=== PATIENT | female | born 1945 | race Caucasian/White ===

== ENCOUNTER → 2016-11-11 | Outpatient (CLI) | payer OTHER ==
--- NOTE | 2016-11-11 09:15 | KCIC ---
INDICATION: Short of air, COPD. TECHNIQUE: Two-view chest radiograph was obtained. Comparison is from February 20, 2016. FINDINGS: The lungs are clear. There is no pleural effusion. The heart is not enlarged and there is no heart failure. There are clips in the upper abdomen. There are minimal degenerative changes in the spine. IMPRESSION: No acute thoracic findings. Electronically signed by: Willian Oliveira MD (11/11/2016 9:12 AM) [id number]
== END | disposition home or self-care (01) ==
LOC: KCIC 08:41
PROVIDERS: ATTEND Internal Medicine Pulmonary Disease
DX: J44.9 Chronic obstructive pulmonary disease, unspecified (principal); Z87.891 Personal history of nicotine dependence
CPT/HCPCS: 71020

== ENCOUNTER → 2016-11-24 | Outpatient (CLI) | payer OTHER ==
--- NOTE | 2016-11-24 10:51 | KCIC ---
PQRS Compliance Statement: One or more of the following individualized dose reduction techniques were utilized for this examination: 1. Automated exposure control 2. Adjustment of the mA and/or kV according to patient size 3. Use of iterative reconstruction technique CT CHEST WO CONTRAST Clinical Indication: Shortness of air, chest pain, cough. Smoker x50 years. Comparison: None. TECHNIQUE: Helical CT imaging of the chest is performed without IV contrast. Findings: There is an 11 mm posterior right thyroid lobe nodule. There is a 9 mm left thyroid nodule. There is no adenopathy in the chest. Limited evaluation of the bety without IV contrast. There is ectasia of the ascending thoracic aorta. Three-vessel coronary artery disease. Cardiac size normal, no pericardial effusion. Mild dependent retained secretions or mucous in the trachea. There is minimal upper lobe centrilobular emphysema. There are bulla in the posterior right upper lobe adjacent to the mediastinum. Calcified granuloma right middle lobe. 3 mm groundglass nodule posterior right lower lobe, image 35. No further follow-up is required per Fleischner Society criteria. Cholecystectomy. Small hypodensity in segment 3 of the liver may be a cyst or hemangioma. There are 2 probable cysts in the upper pole the left kidney. There is a cortical hyperdensity in the upper pole the left kidney measuring 7 mm, coronal image 31. There is an exophytic lesion of the interpolar left kidney measuring 2.8 cm, attenuation measures 28 Hounsfield units, therefore not a simple cyst. Solid mass cannot be excluded. Degenerative spondylosis of the thoracic spine. No compression fracture is seen. IMPRESSION: 1. Minimal upper lobe centrilobular emphysema. 2. There is a soft tissue density lesion of the left kidney. Recommend outpatient renal ultrasound. 3. There are right and left thyroid nodules. Consider outpatient thyroid ultrasound. Electronically signed by: Toby Balderrama MD (11/24/2016 10:47 AM) [id number]
== END | disposition home or self-care (01) ==
LOC: KCIC CT 08:40
PROVIDERS: ATTEND Internal Medicine Pulmonary Disease
DX: J44.9 Chronic obstructive pulmonary disease, unspecified (principal); E04.2 Nontoxic multinodular goiter; N28.9 Disorder of kidney and ureter, unspecified; M47.894 Other spondylosis, thoracic region
CPT/HCPCS: 71250

== ENCOUNTER → 2016-11-24 | Outpatient (CLI) | payer OTHER ==
--- NOTE | 2016-11-24 13:21 | KCIC ---
DATE: 11/24/2016 EXAM: MAMMO BHAVANA SCREENING BILATERAL HISTORY: Routine screening. History of right breast biopsy with benign pathology in 1996. COMPARISON: None This study was interpreted with the benefit of Computerized Aided Detection (CAD). FINDINGS: Breast Density: SCATTERED The breast parenchyma shows scattered fibroglandular densities. Breast parenchyma level B. The nipples are within normal limits. There is dimpling of the skin noted within upper outer right breast. No suspicious calcifications, spiculated masses or areas of architectural distortion. IMPRESSION: No mammographic evidence of malignancy. Right upper outer breast skin dimpling likely due to prior biopsy. Clinically correlate. BI-RADS CATEGORY: 2 BENIGN FINDING(S) RECOMMENDED FOLLOW-UP: 12M 12 MONTH FOLLOW-UP PQRS compliance statement: Patient information was entered into a reminder system with a target due date 11/24/2017 for the next mammogram. Mammography is a sensitive method for finding small breast cancers, but it does not detect them all and is not a substitute for careful clinical examination. A negative mammogram does not negate a clinically suspicious finding and should not result in delay in biopsying a clinically suspicious abnormality. "Our facility is accredited by the [employer] Mammography [employer]."
== END | disposition home or self-care (01) ==
LOC: KCIC MAMMO 08:48
PROVIDERS: ATTEND Physician Assistant Surgical
DX: Z12.31 Encounter for screening mammogram for malignant neoplasm of breast (principal)
CPT/HCPCS: 77063; G0202; 77067

== ENCOUNTER → 2017-01-07 | Outpatient (CLI) | payer OTHER ==
--- NOTE | 2017-01-07 16:11 | KCIC ---
RENAL COMPLETE BILATERAL History: Renal mass on CT Comparison: Chest CT 11/24/2016 Findings: Multiple sonographic images of the kidneys are submitted. The right kidney measured 10.8 x 4.5 x 5.1 cm. The left kidney measured 11 x 4.2 x 5.2 cm. There is no hydronephrosis of either kidney. There is a focus of hypoechogenicity of the mid to inferior right kidney up to 1.4 x 1.6 x 1.6 cm. There is another hypoechoic lesion of the inferior right kidney up to 3.1 x 2.6 x 2.9 cm. There is a hypoechoic lesion of the inferior left kidney up to 1.5 x 1.5 x 1.6 cm. There is also hypoechoic lesion of the mid lateral aspect of the left kidney up to 2.6 x 2.4 x 2 cm. Foci are not associated with significant increased vascularity on color Doppler imaging. There is segmental visualization of the inferior vena cava. Urinary bladder could not be visualized. Abdominal aortic caliber is within normal limits in greatest dimension 2.2 cm. Impression: 1. There are hypoechoic foci of the kidneys bilaterally not associated with internal vascularity, overall findings of cysts. Electronically signed by: Keith Henriquez MD (01/07/2017 4:08 PM) [email or web address]
--- NOTE | 2017-01-07 16:14 | KCIC ---
THYROID ULTRASOUND History: Thyroid nodules on CT Comparison: November 24, [address] Findings: Multiple sonographic images of the thyroid gland are submitted. Right lobe measured 4.3 x 1.9 x 2.1 cm. Left lobe measured 4 x 1.5 x 1.9 cm. There is a solid nodule of the inferior right gland up to 1 1.1 x 1.1 cm although not associated with significant internal vascularity on color Doppler imaging. There is a small hypoechoic lesion of the mid pole of the left thyroid gland up to 0.6 x 0.5 x 0.6 cm. There is also solid heterogeneous nodule of the mid to superior left gland up to 1.4 x 0.9 x 1.2 cm with internal vascularity on color Doppler imaging. Isthmus measured 0.3 cm in thickness. Thyroid parenchyma is somewhat diffusely heterogeneous. Impression: 1. There is a solid nodule of the mid to superior left gland up to 1.4 cm, no previous exams to evaluate for change in size. There is a small cyst of the mid left gland and a solid, although avascular nodule of the inferior right gland. Electronically signed by: Keith Henriquez MD (01/07/2017 4:11 PM) [email or web address]
== END | disposition home or self-care (01) ==
LOC: KCIC US 14:09
PROVIDERS: ATTEND Physician Assistant Surgical
DX: N28.89 Other specified disorders of kidney and ureter (principal); E04.2 Nontoxic multinodular goiter
CPT/HCPCS: 76536; 76770

== ENCOUNTER → 2017-03-08 | Outpatient (CLI) | payer OTHER | END | disposition home or self-care (01) | LOC: US 09:09 | DX: E04.1 Nontoxic single thyroid nodule (principal) | CPT/HCPCS: 60300; 76942; 88173; 88305 ==

== ENCOUNTER → 2017-12-09 | Outpatient (CLI) | payer OTHER ==
--- NOTE | 2017-12-09 16:33 | KCIC ---
Bilateral digital screening mammograms with 3-D tomosynthesis: Reason for examination: Routine screening. History of benign right breast biopsy. Comparison is made to previous study dated 11/24/2016. Bilateral mammograms in CC and oblique projections were obtained with 2-D imaging and 3-D tomosynthesis imaging on a [employer] unit and reviewed on the workstation. Interpretation was made with the benefit of CAD. The skin and nipples show no abnormalities. No abnormal axillary lymph nodes are seen. The breast parenchyma is predominantly fatty. (Breast density: Category A.) There are postop changes with contour deformity at the 10:00 B position. There continue to be small parenchymal nodules anterior centrally in the right breast and posterior laterally at the 3:00 B position of the left breast which are unchanged. There are no new dominant masses, suspicious calcifications or architectural distortion. Impression: No evidence of malignancy. Recommend routine screening. BI-RAD Category 2: Benign. "Our facility is accredited by the [employer] Mammography [employer]." This patient's information has been entered into a reminder system for the patient to be notified with the results of her examination and a target date for the next mammogram. Electronically signed by: Sita Finn MD (12/09/2017 4:30 PM) [id number]
== END | disposition home or self-care (01) ==
LOC: KCIC MAMMO 12:32
PROVIDERS: ATTEND Family Medicine
DX: Z12.31 Encounter for screening mammogram for malignant neoplasm of breast (principal)
CPT/HCPCS: 77063; 77067